=== PATIENT | female | born 2000 | race American Indian/Alaskan Native ===

== ENCOUNTER 2022-01-10 20:08 | Emergency (ER) | payer MEDICAID ==
[2022-01-10 21:29] VITALS: BP 118/71
[2022-01-10] MEDS ORDERED: methylPREDNISolone Sod Succinate 125 MG/2 ML INJ IM ONE (21:39)
[2022-01-10] MEDS ORDERED: ALBUTEROL 2.5 MG/3 ML NEBU IH ONE (21:39)
[2022-01-10] MEDS ORDERED: IPRATROPIUM 0.02% NEBU 2.5 ML IH ONE (21:39)
--- NOTE | 2022-01-10 22:10 | XRay Report ---
CHEST 2 VIEWS INDICATION / CLINICAL INFORMATION: dyspnea, asthma. COMPARISON: None available. FINDINGS: SUPPORT DEVICES: None. HEART / MEDIASTINUM: No significant abnormality. LUNGS / PLEURA: No significant pulmonary or pleural abnormality. No pneumothorax. ADDITIONAL FINDINGS: No significant additional findings. IMPRESSION: 1. No acute findings. Signer Name: Juan Carlos Pace MD Signed: 01/10/2022 10:06 PM Workstation Name: [id number]
--- NOTE | 2022-01-10 23:15 | Emergency Department Report ---
ED Shortness of Breath HPI - General Chief Complaint: Adult Asthma Stated Complaint: SOB Source: patient Mode of arrival: Ambulatory Limitations: No Limitations - History of Present Illness Initial Comments: Patient is a 21-year-old -[place] female with a history of asthma who presents to the ED with complaint of acute onset persistent shortness of breath, dry cough, chest tightness, wheezing, for the last 4 days. Patient also states that she has had mild nasal and sinus congestion the last 1 week. Patient states that she has been using her albuterol inhalers at home but ran out of the same 2 days ago. Patient states that the symptoms have worsened in the last 24 hours and she decided come to the ED for evaluation and treatment. Patient denies chest pain, nausea and vomiting, diarrhea, palpitations, fever, chills, sore throat, dizziness, syncope, abdominal pain or headache. MD Complaint: shortness of breath, cough, "asthma attack" -: Sudden, days(s) (4) Severity: severe Pain Scale: 7 Quality: other (Chest tightness) Consistency: intermittent Improves With: nothing Worsens With: nothing Known History Of: asthma Context: recent URI, allergen exposure Associated Symptoms: denies other symptoms, cough Treatments Prior to Arrival: none - Related Data Home Oxygen Therapy: No Previous Rx's Medication Instructions Recorded Last Taken Type Albuterol Sulfate [Proventil Hfa] 1 - 2 puff IH Q6H PRN #1 inh 01/10/22 Unknown Rx Cetirizine HCl [Zyrtec 10mg tab] 10 mg PO DAILY #30 tab 01/10/22 Unknown Rx Montelukast [Singulair] 10 mg PO QPM #30 tablet 01/10/22 Unknown Rx methylPREDNISolone [Medrol 4MG 4 mg PO DAILY #21 tab 01/10/22 Unknown Rx DOSEPAK (21 tabs)] Allergies Allergy/AdvReac Type Severity Reaction Status Date / Time No Known Allergies Allergy Verified 01/10/22 22:26 ED Review of Systems ROS: Stated complaint: SOB Other details as noted in HPI Constitutional: denies: chills, fever Eyes: denies: eye pain, eye discharge, vision change ENT: congestion. denies: ear pain, throat pain Respiratory: cough, shortness of breath, wheezing Cardiovascular: chest pain (Chest tightness). denies: palpitations Endocrine: no symptoms reported Gastrointestinal: denies: abdominal pain, nausea, vomiting, diarrhea Genitourinary: denies: urgency, dysuria, discharge Musculoskeletal: denies: back pain, joint swelling, arthralgia Skin: denies: rash, lesions Neurological: denies: headache, weakness, paresthesias Psychiatric: denies: anxiety, depression Hematological/Lymphatic: denies: easy bleeding, easy bruising ED Past Medical Hx - Past Medical History Previous Medical History?: Yes Hx Asthma: Yes - Surgical History Past Surgical History?: No - Social History Smoking Status: Never Smoker Substance Use Type: None - Medications Home Medications: Home Medications Medication Instructions Recorded Confirmed Last Taken Type Albuterol Sulfate [Proventil Hfa] 1 - 2 puff IH Q6H PRN #1 inh 01/10/22 Unknown Rx Cetirizine HCl [Zyrtec 10mg tab] 10 mg PO DAILY #30 tab 01/10/22 Unknown Rx Montelukast [Singulair] 10 mg PO QPM #30 tablet 01/10/22 Unknown Rx methylPREDNISolone [Medrol 4MG 4 mg PO DAILY #21 tab 01/10/22 Unknown Rx DOSEPAK (21 tabs)] ED Physical Exam - General Limitations: No Limitations General appearance: alert, in no apparent distress - Head Head exam: Present: atraumatic, normocephalic, normal inspection - Eye Eye exam: Present: normal appearance, PERRL, EOMI Pupils: Present: normal accommodation - ENT ENT exam: Present: normal exam, normal orophraynx, mucous membranes moist, TM's normal bilaterally, normal external ear exam - Neck Neck exam: Present: normal inspection, full ROM. Absent: tenderness - Respiratory Respiratory exam: Present: respiratory distress (Mild respiratory distress, use of accessory muscles), wheezes (Diffuse coarse wheezes throughout), accessory muscle use. Absent: normal lung sounds bilaterally, rales, rhonchi, stridor, chest wall tenderness, decreased breath sounds, prolonged expiratory - Cardiovascular Cardiovascular Exam: Present: regular rate, normal rhythm, normal heart sounds. Absent: systolic murmur, diastolic murmur, rubs, gallop - GI/Abdominal GI/Abdominal exam: Present: soft, normal bowel sounds. Absent: tenderness, guarding, rebound, hyperactive bowel sounds, hypoactive bowel sounds, organomegaly, mass - Extremities Exam Extremities exam: Present: normal inspection, full ROM, normal capillary refill. Absent: tenderness - Back Exam Back exam: Present: normal inspection, full ROM. Absent: tenderness, CVA tenderness (L), muscle spasm, paraspinal tenderness, vertebral tenderness - Neurological Exam Neurological exam: Present: alert, oriented X3, CN II-XII intact, normal gait, reflexes normal - Psychiatric Psychiatric exam: Present: normal affect, normal mood, anxious - Skin Skin exam: Present: warm, dry, intact, normal color. Absent: rash ED Course Vital Signs 01/10/22 01/10/22 01/10/22 21:26 21:50 22:51 Temperature 98.7 F Pulse Rate 94 H Pulse Rate [ 90 96 H Anterior Bilateral Throughout] Respiratory 18 Rate Respiratory 20 18 Rate [Anterior Bilateral Throughout] Blood Pressure 118/71 [Left] O2 Sat by Pulse 95 Oximetry ED Medical Decision Making - Medical Decision Making This is a 21-year-old -[place] female with a history of asthma who presents to the ED with complaint of acute onset persistent shortness of breath, dry cough, chest tightness, wheezing, for the last 4 days. Patient also states that she has had mild nasal and sinus congestion the last 1 week. Patient states that she has been using her albuterol inhalers at home but ran out of the same 2 days ago. Patient states that the symptoms have worsened in the last 24 hours and she decided come to the ED for evaluation and treatment. In the ED, patient is alert and oriented x3 and is not in any distress. Patient was treated in the ED for acute asthma exacerbation with Solu-Medrol 125 mg intramuscular injection, ipratropium 1 mg and albuterol 10 mg. On reevaluation, patient's wheezing resolved, patient felt better, patient's oxygen saturation is 97 to 99% on room air. Chest x-ray showed no acute cardiopulmonary abnormalities or pneumonitis. Patient was discharged home on medications and advised to follow-up with her primary care physician in 7 to 10 days for reevaluation or return to the ED immediately if symptoms get worse. - Differential Diagnosis Asthma; bronchitis; pneumonia; URI; rhinitis; Critical care attestation.: If time is entered above; I have spent that time in minutes in the direct care of this critically ill patient, excluding procedure time. ED Disposition Clinical Impression: Acute bronchitis with asthma with acute exacerbation, Shortness of breath Disposition: HOME / SELF CARE / HOMELESS Is pt being admited?: No Does the pt Need Aspirin: No Condition: Stable Instructions: Shortness of Breath, Adult, [id number], Asthma, Adult, [id number], Acute Bronchitis, Adult, [id number] Additional Instructions: Chest x-ray showed no acute cardiopulmonary abnormalities or pneumonitis. Take medication with food, drink plenty of fluids, follow-up with your primary care physician in 7 to 10 days for reevaluation. Return to the ED immediately if symptoms get worse. Prescriptions: methylPREDNISolone [Medrol 4MG DOSEPAK (21 tabs)] 4 mg PO DAILY #21 tab Albuterol Sulfate [Proventil Hfa] 1 - 2 puff IH Q6H PRN #1 inh PRN Reason: Shortness Of Breath Montelukast [Singulair] 10 mg PO QPM #30 tablet Cetirizine HCl [Zyrtec 10mg tab] 10 mg PO DAILY #30 tab Referrals: [facility] [Provider Group] - 7-10 days Time of Disposition: 23:25 Print Language: LAO
== END 2022-01-11 00:20 | disposition home or self-care (01) ==
LOC: ED 20:08
DX: J45.901 Unspecified asthma with (acute) exacerbation (principal); R06.02 Shortness of breath
CPT/HCPCS: 71046; 94640; 94644; 96372; 99283; J2930